=== PATIENT | male | born 1990 | race Caucasian/White ===

== ENCOUNTER 2017-12-13 20:10 | Inpatient (IN) | payer MEDICAID ==
[2017-12-13 20:19] VITALS: BMI 24.7
[2017-12-13] MEDS ORDERED: Sodium Chloride 0.9% 1,000 ML IV STA (20:56)
--- NOTE | 2017-12-13 20:57 | ED PDOC ---
Arrival/HPI <Guilherme,Austin - Last Filed: 12/14/17 01:12> - General Historian: Patient - History of Present Illness Time/Duration: Other (see hpi) Context: Home <Tesha Hannamargret P - Last Filed: 12/15/17 17:55> - General Chief Complaint: Psychiatric Evaluation Time Seen by Provider: 12/13/17 20:55 - History of Present Illness Narrative History of Present Illness (Text): 12/13/17 20:56 This 27 yo male with a PMH depression, presents to this ED c/o feeling depressed and constant suicidal ideation for over 6 months. Patient denies HI, paranoia, illegal drug use, or alcohol abuse. 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 absent: Fatigue, Weight Change, Fevers, Night Sweats Eyes: Normal ENT: Normal Respiratory: Normal Cardiovascular: Normal Gastrointestinal: Normal Genitourinary Male: Normal Musculoskeletal: Normal Skin: Normal Neurological: Normal Endocrine: Normal Hemo/Lymphatic: Normal Psychiatric: Depression, Suicidal Ideation <HannaTeshamargret P - Last Filed: 12/15/17 17:55> Physical Exam Temperature: Afebrile Blood Pressure: Normal Pulse: Regular Respiratory Rate: Normal Appearance: Positive for: Well-Appearing, Non-Toxic, Comfortable Pain Distress: None Mental Status: Positive for: Alert and Oriented X 3 - Systems Exam Head: Present: Atraumatic, Normocephalic Pupils: Present: PERRL Extroacular Muscles: Present: EOMI Conjunctiva: Present: Normal Mouth: Present: Moist Mucous Membranes Neck: Present: Normal Range of Motion Respiratory/Chest: Present: Clear to Auscultation, Good Air Exchange. No: Respiratory Distress, Accessory Muscle Use Cardiovascular: Present: Regular Rate and Rhythm, Normal S1, S2. No: Murmurs Abdomen: No: Tenderness, Distention, Peritoneal Signs Back: Present: Normal Inspection Upper Extremity: Present: Normal Inspection. No: Cyanosis, Edema Lower Extremity: Present: Normal Inspection. No: Edema Neurological: Present: GCS=15, CN II-XII Intact, Speech Normal Skin: Present: Warm, Dry, Normal Color. No: Rashes Psychiatric: Present: Alert, Oriented x 3, Depressed Mood, Suicidal Ideation <Helene Hanna - Last Filed: 12/15/17 17:55> Vital Signs Temp Pulse Resp BP Pulse Ox 12/14/17 03:05 98.3 F 78 17 114/57 L 98 12/13/17 20:18 98.7 F 86 18 134/96 H 100 Medical Decision Making <Austin Vangeas - Last Filed: 12/14/17 01:12> Re-evaluation Time: 01:03 Reassessment Condition: Re-examined, Improving,but remains with symptoms - Lab Interpretations I have reviewed the lab results: Yes Interpretation: No clinic. lab abnormalty - EKG Interpretation Interpreted by ED Physician: Yes (NSR @ [address] changes) Type: 12 lead EKG Comparison: No previous EKG avail. <Helene Hanna - Last Filed: 12/15/17 17:55> ED Course and Treatment: 12/14/17 00:20 PES screener stated she had consulted with Dr. Houser. She recommended admission. Patient agreed with plan. (Helene Hanna) - Lab Interpretations Lab Results: 12/13/17 21:20 12/13/17 21:20 Lab Results 12/13/17 21:20: Urine Opiates Screen Negative, Urine Methadone Screen Negative, Ur Barbiturates Screen Negative, Ur Phencyclidine Scrn Negative, Ur Amphetamines Screen Negative, U Benzodiazepines Scrn Negative, U Oth Cocaine Metabols Negative, U Cannabinoids Screen Positive H 12/13/17 21:20: Alcohol, Quantitative < 10 12/13/17 21:20: Salicylates < 1 L, Acetaminophen < 10.0 L 12/13/17 21:20: Urine Color Yellow, Urine Appearance Clear, Urine pH 6.0, Ur Specific [place] >= 1.030, Urine Protein Trace H, Urine Glucose (UA) Negative, Urine Ketones Trace H, Urine Blood Negative, Urine Nitrate Negative, Urine Bilirubin Negative, Urine Urobilinogen 1.0 H, Ur Leukocyte Esterase Negative, Urine RBC 1 - 3, Urine WBC 2 - 5, Ur Epithelial Cells None, Urine Bacteria Mod 12/13/17 21:20: Sodium 140, Potassium 4.0, Chloride 102, Carbon Dioxide 28, Anion Gap 15, BUN 15, Creatinine 0.9, Est GFR ( Amer) > 60, Est GFR (Non- Af Amer) > 60, Random Glucose 125 H, Calcium 9.2, Magnesium 1.9, Total Bilirubin 0.5, AST 30, ALT 27, Alkaline Phosphatase 46, Total Protein 7.5, Albumin 4.4, Globulin 3.1, Albumin/Globulin Ratio 1.4 12/13/17 21:20: WBC 6.7, RBC 4.90, Hgb 15.2, Hct 42.5, MCV 86.7, MCH 31.0, MCHC 35.8, RDW 12.2, Plt Count 195, MPV 11.3 H, Gran % 77.3 H, Lymph % (Auto) 15.6 L , [place] % (Auto) 7.0 H, Eos % (Auto) 0.0 L, Baso % (Auto) 0.1, Gran # 5.18, Lymph # (Auto) 1.1 L, [place] # (Auto) 0.5, Eos # (Auto) 0.0, Baso # (Auto) 0.01 - RAD Interpretation Radiology Orders: 12/13/17 21:16 CHEST PORTABLE [RAD] Stat - Medication Orders Current Medication Orders: Acetaminophen (Tylenol 325mg Tab) 650 mg PO Q4 PRN PRN Reason: Pain, moderate (4-7) Last Admin: 12/14/17 04:23 Dose: 650 mg MAR Pain/Vitals Document 12/14/17 04:23 KM (Rec: 12/14/17 04:24 KM [id number]) Presence of Pain Presence of Pain Yes Pain Scale Used Pain Scale Used Numeric Location Upper or Lower Upper Pain Location Body Site Back Description Chronic Intensity 4 Scale Used Numeric Re-Assess: GENE Pain/Vitals Document 12/14/17 05:23 KM (Rec: 12/14/17 05:37 KM [id number]) Pain Reassessment Is This A Pain ReAssessment? Yes Sleep Is patient sleeping during reassessment? Yes Location Upper or Lower Upper Pain Location Body Site Back Description Chronic Al Hydrox/Mg Hydrox/Simethicone (Maalox Plus 30 Ml) 30 ml PO DAILY PRN PRN Reason: Upset Stomach Bupropion HCl (Wellbutrin) 75 mg PO BID ELY Last Admin: 12/15/17 17:08 Dose: 75 mg Haloperidol (Haldol) 3 mg PO Q6 PRN; Protocol PRN Reason: Agitation Haloperidol Lactate (Haldol) 3 mg IM Q6 PRN; Protocol PRN Reason: Agitation Lorazepam (Ativan) 1 mg IM Q6 PRN; Protocol PRN Reason: Agitation Lorazepam (Ativan) 1 mg PO Q6 PRN; Protocol PRN Reason: Agitation Magnesium Hydroxide (Milk Of Magnesia) 30 ml PO DAILY PRN PRN Reason: Constipation Naproxen (Anaprox Ds) 550 mg PO BID PRN PRN Reason: Pain, Mild (1-3) Nicotine (Nicoderm Cq) 1 patch TD DAILY ELY Last Admin: 12/15/17 08:24 Dose: [address] [facility] Transdermal Patch Site Document 12/15/17 08:24 RFE (Rec: 12/15/17 08:24 RFE [id number]) Transdermal Patch Site Transdermal Patch Site Right Shoulder Zaleplon (Sonata) 5 mg PO HS PRN PRN Reason: Insomnia Last Admin: 12/14/17 22:05 Dose: 5 mg Discontinued Medications Sodium Chloride (Sodium Chloride 0.9%) 1,000 mls @ 999 mls/hr IV .Q1H1M STA Stop: 12/13/17 21:56 Last Admin: 12/13/17 22:03 Dose: 999 mls/hr eMAR Start Stop Document 12/13/17 22:03 SS (Rec: 12/13/17 22:04 SS [id number]) Intravenous Solution Start Date 12/13/17 Start Time 21:40 End Date 12/13/17 - PA / TALLOW REFINER / Resident Statement / has reviewed & agrees with the documentation as recorded. / has examined the patient and agrees with the treatment plan. <Austin Vanegas - Last Filed: 12/14/17 01:12> Disposition/Present on Arrival <Austin Vanegas - Last Filed: 12/14/17 01:12> - Present on Arrival Any Indicators Present on Arrival: No History of DVT/PE: No History of Uncontrolled Diabetes: No Urinary Catheter: No History of Decub. Ulcer: No History Surgical Site Infection Following: None - Disposition Have Diagnosis and Disposition been Completed?: Yes Disposition Time: 01:08 Patient Plan: Admission <Helene Hanna - Last Filed: 12/15/17 17:55> - Disposition Diagnosis: Major depression Disposition: HOSPITALIZED Patient Problems: Current Active Problems Problem Status Onset Cannabis abuse Acute Major depression Acute Condition: STABLE
[2017-12-13 21:58] LABS: URINE BILIRUBIN NEGATIVE (NEGATIVE); URINE BLOOD NEGATIVE (NEGATIVE); URINE GLUCOSE (UA) NEGATIVE (NEGATIVE); URINE LEUKOCYTE ESTERASE NEGATIVE Leu/uL (NEGATIVE); URINE PROTEIN TRACE mg/dL (<30 mg/dL)
[2017-12-13 21:59] LABS: URINE APPEARANCE CLEAR (CLEAR); URINE COLOR YELLOW (YELLOW)
[2017-12-13 22:00] LABS: BASO # 0.01 K/mm3 (0.0-2.0); BASO % 0.1 % (0.0-3.0); GRAN # 5.18 (1.4-6.5); GRAN % 77.3 % (50.0-68.0); HEMOGLOBIN 15.2 g/dL (14.0-18.0); LYMPH # 1.1 (1.2-3.4); LYMPH % 15.6 % (22.0-35.0); MEAN CELL VOLUME 86.7 fl (80.0-105.0); MEAN CORPUSCULAR HGB CONC 35.8 g/dl (31.0-37.0); MEAN PLATELET VOLUME 11.3 fl (7.0-11.0); MONO # 0.5 (0.1-0.6); RBC 4.9 10^6/uL (3.5-6.1); RED CELL DISTRIBUTION WIDTH 12.2 % (11.5-14.5); WHITE BLOOD COUNT 6.7 10^3/ul (4.5-11.0)
[2017-12-13 22:11] LABS: ALB/GLOB RATIO 1.4 (1.1-1.8); ALBUMIN 4.4 g/dL (3.0-4.8); ALT/SGPT 27 U/L (7-56); AST/SGOT 30 U/L (17-59); BLOOD UREA NITROGEN 15 mg/dL (7-21); CALCIUM 9.2 mg/dL (8.4-10.5); GFR AFRICAN-AMERICAN > 60; GFR NON-AFRICAN AMERICAN > 60
[2017-12-13 22:12] LABS: ACETAMINOPHEN < 10.0 ug/ml (10.0-20.0); SALICYLATE < 1 mg/dL (2.0-20.0)
[2017-12-13 22:26] LABS: BARBITURATES, UR NEGATIVE (NEGATIVE); BENZODIAZEPINES, UR NEGATIVE (NEGATIVE); OPIATES, UR NEGATIVE (NEGATIVE); PHENCYCLIDINE, UR NEGATIVE (NEGATIVE)
[2017-12-13 22:27] LABS: URINE BACTERIA MOD (NEG)
[2017-12-14 04:00] VITALS: O2SAT 100
[2017-12-14] MEDS ORDERED: Magnesium Hydroxide Susp 30 ml UD PO PRN (04:18)
[2017-12-14] MEDS ORDERED: Alum-Mag Hydrox-Simethicone Susp (30 mL) PO PRN (04:18)
--- NOTE | 2017-12-14 05:04 | PCM.BM ---
<Justyn Villa - Last Filed: 12/14/17 05:02> Treatment Plan Problems - Problems identified on initial assessmt Suicidal Ideation Date Initiated: 12/14/17 Time Initiated: 05:02 Assessment reference: NA Status: Active Hopelessness/Helplessness Date Initiated: 12/14/17 Time Initiated: 05:02 Assessment reference: NA Status: Active Feelings of Worthlessness Date Initiated: 12/14/17 Time Initiated: 05:02 Assessment reference: NA Status: Active Ineffective Coping Date Initiated: 12/14/17 Time Initiated: 05:03 Assessment reference: NA Status: Active Altered Sleep Patterns Date Initiated: 12/14/17 Time Initiated: 05:03 Assessment reference: NA Status: Active Treatment assets and liabiliti Patient Assests: adapts well, cooperative, educated, self-reliant, ADL independent, physically healthy, negotiates basic needs, cognitively intact Patient Liabilities: live alone, financial problems, poor support system, substance abuse - Milieu Protocol Maintain good personal hygiene: daily Encourage regular showers, daily Remind patient to perform daily oral care, daily Assist patient to perform ADL's Conduct patient checks and document Observation sheet: Q15 minutes Maintain personal safety: every shift Educate patient to report safety concerns to staff, every shift Monitor environment for contraband/sharps Medication safety: Monitor for expected outcome, potential side effects: every shift, Assess barriers to learning: every shift, Assess readiness for medication education: every shift Discharge/Continuing Care - Education Needs Education Needs: Patient Medication, Patient Diagnosis/Disease Process, Patient Coping Skills, Patient Community resources, Patient Activities of Daily Living, Patient Pain, Patient Health Practices/Safety, Patient Aftercare Safety Plan - Discharge Discharge Criteria: Tolerates medication w/o severe side effects, Free of Suicidal thoughts, Normal sleep pattern, Ability to care for self, Reduction of target symptoms <Cristin Varela - Last Filed: 12/14/17 15:38> - Diagnosis (1) Cannabis abuse Status: Acute Interventions: 12/14/17 15:39 Maintaining sobriety Relapse prevention Possible rehabilitation Motivational interviewing 12-step programs: AA meetings (2) Major depression Status: Acute Interventions: 12/14/17 15:39 Psychoeducation Psychopharmacology/adjustment of medications as needed/ monitoring possible side effects Evaluate pt on daily basis Compliance with medications and follow up appointments Suicide and homicide risk assessment and prevention Relapse prevention Reduction of symptoms Improve functional status Family involvement As outpatient: cognitive behavioral therapy <Jane Hobbs - Last Filed: 12/16/17 14:38>
[2017-12-14 07:41] LABS: GLUCOSE,FASTING 94 mg/dL (65-110); HDL CHOLESTEROL 39 mg/dL (29-60)
[2017-12-14 07:52] LABS: LDL CHOLESTEROL 83 mg/dL (0-129)
--- NOTE | 2017-12-14 08:22 | RAD ---
HISTORY: PES eval COMPARISON: No prior. FINDINGS: LUNGS: No active pulmonary disease. PLEURA: No significant pleural effusion identified, no pneumothorax apparent. CARDIOVASCULAR: Normal. OSSEOUS STRUCTURES: No significant abnormalities. VISUALIZED UPPER ABDOMEN: Normal. OTHER FINDINGS: None. IMPRESSION: No active disease.
--- NOTE | 2017-12-14 10:02 | CARD ---
APPROVED REPORT EKG Measurement Heart [id number] <Conclusion> Normal sinus rhythm with sinus arrhythmia RVCD Normal ECG
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
[2017-12-15 07:02] VITALS: RESP 20
--- NOTE | 2017-12-15 08:28 | PCM.PYCHPN ---
Psychiatric Progress Note - Psychiatric Progress Note Patient seen today, length of contact: 25 min Patient Chief Complaint: "better" Problems Identified/Issues Discussed: I reviewed assessment and recent notes. I met with patient at bedside. He is groomed, alert and well-oriented to month, year, location and circumstances. He cooperates with my questioning and generally denies any new concerns except for the security of his job. Patient worries that his employer will not be happy about his absence from work. Patient reports that he is feeling less depressed since admission and that he is hopeful. He denies any issues with his medications and sleep was fair last night with sonata. His affect is constricted but appropriately reactive. Patient smiles at times during our interview. Responses are relevant, consistent and logical. There is no evidence of perceptual disturbance. Patient has been a little anxious on the unit but in good behavioral control. Appetites is good and he attended group. Insight and judgement are improving and thus far he is doing well. Diagnostic Results: MDD Rule out Adjustment Disorder Cannabis abuse Mental Status Examination - Cognitive Function Orientation: Person, Place - Mood Mood: Depressed - Affect Affect: Flat - Formal Thought Process Formal Thought Process: No Impairment - Homicidal Ideation Homicidal Ideation: No Goal/Treatment Plan - Goal/Treatment Plan Progress Toward Problem(s) and Goals/Treatment Plan: * c/w current tx and plan * No new labs thus today * Vitals reviewed and noted below: Selected Entries 12/14/17 12/14/17 12/14/17 06:50 15:00 22:21 Temperature 98.3 F Pulse Rate 61 70 Respiratory 16 Rate Blood Pressure 121/75 107/76 127/76
--- NOTE | 2017-12-15 13:34 | CP.PCM.CON ---
<Maylin Ozuna - Last Filed: 12/15/17 15:24> History of Present Illness - History of Present Illness History of Present Illness: Maylin Ozuna D.O. 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 Medrano is a 27 year old male with PMH of depression, who arrived to [facility] ED for vomiting. While in the ED, the patient was found to have suicidal ideation and was admitted to the hospital under the care of psychiatry. Patient says that he felt nauseous after he drank about a 1/2 cup of beer, and subsequently had 1 episode of nonbloody vomitus. Patient admits to sore throat, abdominal discomfort. ROS otherwise unremarkable for sinus congestion, ear pain , sick contacts, fever, chills, diarrhea and/or prior episodes. PMH: - depression Surgeries: - tonsillectomy - self reported - appendectomy - self reported Social history: - ETOH: beer on occaision (about 2 times per month) - tobacco: 1.5 packs per day x6 years - recreational drugs: marijuana - occupation: [employer] Family history: - unknown Allergies: patient denies allergies to medication Home meds: patient reports he was taking Review of Systems - Review of Systems All systems: reviewed and no additional remarkable complaints except (per HPI) - Constitutional Constitutional: As Per HPI. absent: Fever - EENT Ears: absent: Ear Pain Nose/Mouth/Throat: As Per HPI. absent: Nasal Congestion, Nasal Discharge, Sinus Pain - Cardiovascular Cardiovascular: As Per HPI - Respiratory Respiratory: As Per HPI, Cough - Gastrointestinal Gastrointestinal: As Per HPI - Psychiatric Psychiatric: Suicidal Ideation (Patient admits to suicidal ideation. Patient says he planned to stab himself with a knife, and a year prior with overdosing on pills.). absent: Homicidal Ideation Past Patient History - Infectious Disease Hx of Infectious Diseases: None - Past Social History Smoking Status: Heavy Smoker > 10 Cigarettes Daily (patient admits to smoking 1.5 packs per day for the past 6 years) Alcohol: Occasional (Admits to consuming beer, approximately 2 times per month.) - CARDIAC Hx Cardiac Disorders: No Hx Hypertension: No - PULMONARY Hx Respiratory Disorders: No Hx Tuberculosis: No - NEUROLOGICAL Hx Neurological Disorder: No HX Cerebrovascular Accident: No Hx Seizures: No - HEENT Hx HEENT Problems: No - RENAL Hx Chronic Kidney Disease: No - ENDOCRINE/METABOLIC Hx Endocrine Disorders: No - HEMATOLOGICAL/ONCOLOGICAL Hx Blood Disorders: No Hx Cancer: No Hx Human Immunodeficiency Virus (HIV): No - INTEGUMENTARY Hx Dermatological Problems: No - MUSCULOSKELETAL/RHEUMATOLOGICAL Hx Back Pain: Yes - GASTROINTESTINAL Hx Gastrointestinal Disorders: No - GENITOURINARY/GYNECOLOGICAL Hx Genitourinary Disorders: No Hx Sexually Transmitted Disorders: No - PSYCHIATRIC Hx Depression: Yes Hx Substance Use: Yes (MJ) Meds Allergies/Adverse Reactions: Allergies Allergy/AdvReac Type Severity Reaction Status Date / Time No Known Allergies Allergy Verified 12/14/17 04:22 - Medications Medications: Current Medications Acetaminophen (Tylenol 325mg Tab) 650 mg PO Q4 PRN PRN Reason: Pain, moderate (4-7) Last Admin: 12/14/17 04:23 Dose: 650 mg Al Hydrox/Mg Hydrox/Simethicone (Maalox Plus 30 Ml) 30 ml PO DAILY PRN PRN Reason: Upset Stomach Bupropion HCl (Wellbutrin) 75 mg PO BID ELY Last Admin: 12/15/17 08:24 Dose: 75 mg Haloperidol (Haldol) 3 mg PO Q6 PRN; Protocol PRN Reason: Agitation Haloperidol Lactate (Haldol) 3 mg IM Q6 PRN; Protocol PRN Reason: Agitation Lorazepam (Ativan) 1 mg IM Q6 PRN; Protocol PRN Reason: Agitation Lorazepam (Ativan) 1 mg PO Q6 PRN; Protocol PRN Reason: Agitation Magnesium Hydroxide (Milk Of Magnesia) 30 ml PO DAILY PRN PRN Reason: Constipation Naproxen (Anaprox Ds) 550 mg PO BID PRN PRN Reason: Pain, Mild (1-3) Nicotine (Nicoderm Cq) 1 patch TD DAILY ELY Last Admin: 12/15/17 08:24 Dose: 1 patch Zaleplon (Sonata) 5 mg PO HS PRN PRN Reason: Insomnia Last Admin: 12/14/17 22:05 Dose: 5 mg Physical Exam - Constitutional Appears: Well, Other - Head Exam Head Exam: ATRAUMATIC, NORMAL INSPECTION, NORMOCEPHALIC - Eye Exam Eye Exam: Normal appearance. absent: Conjunctival injection, Periorbital swelling, Scleral icterus - ENT Exam ENT Exam: absent: Mucous Membranes Moist Additional comments: oral mucous membranes appeared red on inspection with light, lymphadenopathy positive on exam - Neck Exam Neck exam: Positive for: Lymphadenopathy (Left anterior cervical LAD palpable. Right lateral cervical LAD palpable. ) - Respiratory Exam Respiratory Exam: Clear to Auscultation Bilateral, NORMAL BREATHING PATTERN. absent: Accessory Muscle Use, Chest Wall Tenderness, Decreased Breath Sounds, Rales, Rhonchi, Wheezes, Respiratory Distress, Stridor - Cardiovascular Exam Cardiovascular Exam: REGULAR RHYTHM, +S1, +S2. absent: Bradycardia, Tachycardia , Diastolic murmur, Gallop, RRR, Rubs, +S4, Systolic Murmur - GI/Abdominal Exam GI & Abdominal Exam: Normal Bowel Sounds, Soft (negative Sinclair's ). absent: Bruit, Diminished Bowel Sounds, Distended, Firm, Guarding, Hernia, Hyperactive Bowel Sounds, Hypoactive Bowel Sounds, Mass, Organomegaly, Pulsatile Mass, Rebound, Rigid - Neurological Exam Neurological exam: Alert, CN II-XII Intact, Normal Gait, Oriented x3 - Psychiatric Exam Psychiatric exam: Normal Affect, Normal Mood, Suicidal Ideation - Skin Skin Exam: Dry, Intact, Normal Color, Warm Results - Vital Signs Recent Vital Signs: Last Vital Signs Temp 97.5 F L 12/15/17 07:01 Pulse 58 L 12/15/17 07:01 Resp 20 12/15/17 07:01 BP 117/57 L 12/15/17 07:01 Pulse Ox 100 12/14/17 04:21 - Labs Result Diagrams: 12/13/17 21:20 12/13/17 21:20 Labs: Laboratory Results - last 24 hr 12/14/17 07:00 RPR Nonreactive Assessment & Plan - Assessment and Plan (Free Text) Assessment: This is a 27 year old male with PMH of depression who arrived to [facility] ED with a cc of vomiting and was found to have suicidal ideation. Patient is under the care of psychiatry for suicidal ideation and Major Depressive Disorder. Non-bloody vomiting possibly secondary to cannabanoid hyperemesis syndrome; less -likely infectious etiology - positive marijuana on urine drug screen - vitals: afebrial, continue to monitor - negative for elevated leukocytes - monospot test pending - rapid strep test pending - throat culture pending Major Depressive Disorder with history of suicidal ideation - management deferred to psychiatry Substance abuse - positive marijuana on urine drug screen - discussed risks of continued substance abuse, and patient was advised discontinuation. Case was seen and reviewed with Attending Physician, Mendoza Frost D.O. 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 <Perla Medley R - Last Filed: 12/15/17 18:56> Meds - Medications Medications: Current Medications Acetaminophen (Tylenol 325mg Tab) 650 mg PO Q4 PRN PRN Reason: Pain, moderate (4-7) Last Admin: 12/15/17 17:46 Dose: 650 mg Al Hydrox/Mg Hydrox/Simethicone (Maalox Plus 30 Ml) 30 ml PO DAILY PRN PRN Reason: Upset Stomach Bupropion HCl (Wellbutrin) 75 mg PO BID [facility] Last Admin: 12/15/17 17:08 Dose: 75 mg Haloperidol (Haldol) 3 mg PO Q6 PRN; Protocol PRN Reason: Agitation Haloperidol Lactate (Haldol) 3 mg IM Q6 PRN; Protocol PRN Reason: Agitation Lorazepam (Ativan) 1 mg IM Q6 PRN; Protocol PRN Reason: Agitation Lorazepam (Ativan) 1 mg PO Q6 PRN; Protocol PRN Reason: Agitation Magnesium Hydroxide (Milk Of Magnesia) 30 ml PO DAILY PRN PRN Reason: Constipation Naproxen (Anaprox Ds) 550 mg PO BID PRN PRN Reason: Pain, Mild (1-3) Nicotine (Nicoderm Cq) 1 patch TD DAILY [facility] Last Admin: 12/15/17 08:24 Dose: 1 patch Zaleplon (Sonata) 5 mg PO HS PRN PRN Reason: Insomnia Last Admin: 12/14/17 22:05 Dose: 5 mg Results - Vital Signs Recent Vital Signs: Last Vital Signs Temp 97.5 F L 12/15/17 07:01 Pulse 74 12/15/17 15:48 Resp 20 12/15/17 07:01 BP 118/67 12/15/17 15:48 Pulse Ox 100 12/14/17 04:21 - Labs Result Diagrams: 12/13/17 21:20 12/13/17 21:20 Labs: Laboratory Results - last 24 hr 12/15/17 18:03 Grp A Beta Strep Ag Negative Attending/Attestation - Attestation I have personally seen and examined this patient.: Yes I have fully participated in the care of the patient.: Yes I have reviewed all pertinent clinical information: Yes Notes (Text): Patient seen and examined by me at 12:00PM with resident. Case including physical assessment and plan discussed with resident. Agree with above with following additions and changes. Consults of her episode of nausea and vomiting. Patient states he is feeling better today. Patient states he drinks a beer yesterday and subsequently had an episode of vomiting. This has resolved. He states at time of exam that he is having mild abdominal pain. He states he is also having a sore throat and difficulty swallowing. He states this has been going on for approximately one month and has been worsening. Patient has not tried any medications for this at home. He has also not seen a physician for this. He denies any associated fevers or chills. There is no radiation of the pain. He denies any chest pain or shortness of breath. No headaches or dizziness. No dysuria. No diarrhea or constipation. Physical exam: Gen: Patient is awake and alert sitting up in bed in no acute distress HEENT: Normocephalic atraumatic, extraocular muscles intact, pupils equal reactive, oropharynx is pink and moist, no pharyngeal erythema or exudate appreciated, neck is supple. Positive anterior lymphadenopathy Cardiovascular: Normal rhythm, normal S1-S2, positive systolic murmur. No rubs or gallops appreciated Pulmonary: Normal respiratory effort. No rhonchi, rales, or wheezing appreciated Gastrointestinal: Soft, nontender, nondistended, positive bowel sounds all 4 quadrants, no guarding. Musculoskeletal: Moves all extremities, no calf tenderness. Central nervous system: AAO 3, no focal deficits Dermatologic: Skin warm and dry. Assessment and plan: Patient is a 27-year-old male who presented with nausea and vomiting after drinking beer. Patient was admitted to psychiatric unit for suicidal ideation and depression. Nausea and vomiting resolved. May have been secondary to marijuana use. Patient counseled on cessation. Patient with sore throat with lymphadenopathy. Will obtain throat cultures. Monospot testing pending. Throat exam appears within normal limits on exam. No leukocytosis. No fevers. No antibiotics started for now. Management as per primary team for depression. Case was discussed in detail with the patient regarding current diagnosis and treatment plan. Thank you for allowing us participate in the care of your patient we will follow with you.
[2017-12-16] MEDS: Naproxen 550 mg Tab PO PRN (12:06)
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
[2017-12-17] MEDS: Naproxen 550 mg Tab PO PRN (21:34)
--- NOTE | 2017-12-18 08:48 | PCM.PYCHPN ---
Psychiatric Progress Note - Psychiatric Progress Note Patient seen today, length of contact: 30min Patient Chief Complaint: "better" Problems Identified/Issues Discussed: I reviewed recent notes and met with patient at bedside. I am familiar with this patient from a prior interview on December 15. He remains groomed, cooperative, alert and well-oriented to month, year, location and circumstances. He generally denies any new concerns Patient reports continued improvement in depression symptoms since admission. Indicates he doesn't have any more negative thoughts and feels more hopeful than hopeless. Patient denies any issues with his medications and patient slept well slast night. His affect is constricted but showing more range and reactivity. . Patient smiles at times during our interview. Responses are relevant, consistent and logical. There is no evidence of perceptual disturbance. Staff notes indicate that patient has been visible and social with other patients on the unit. Appetite is good and he attends group. Insight and judgment are improving and thus far he is making fair progress. Diagnostic Results: MDD Rule out Adjustment Disorder Cannabis abuse Medication Change: Yes (wellbutrin increased, remeron increased 11/16/17) Medical Record Reviewed: Yes Mental Status Examination - Cognitive Function Orientation: Person, Place Memory: Intact Attention: Poor (some improvement) Concentration: Poor (some improvement) Association: WNL Fund of Knowledge: WNL - Mood Mood: Depressed ("I am not happy") - Affect Affect: Constricted (but more reactive, mood congruent) - Formal Thought Process Formal Thought Process: No Impairment - Suicidal Ideation Suicidal Ideation: No - Homicidal Ideation Homicidal Ideation: No Goal/Treatment Plan - Goal/Treatment Plan Need for Continued Stay: Remain at risks for inpatient hospitalization, Severe depression anxiety, Discharge may exacerbated symptoms, Severe functional impairment Progress Toward Problem(s) and Goals/Treatment Plan: * c/w current tx and plan * No new labs thus today * Vitals reviewed and noted below: Selected Entries 12/18/17 07:17 Temperature 97.7 F Pulse Rate 62 Respiratory 20 Rate Blood Pressure 116/73 Estimated Date of D/C: 12/20/17
[2017-12-18] MEDS: Naproxen 550 mg Tab PO PRN (17:28)
[2017-12-19 06:48] VITALS: TEMP 97.3
--- NOTE | 2017-12-19 08:42 | PCM.PYCHPN ---
Psychiatric Progress Note - Psychiatric Progress Note Patient seen today, length of contact: 30min Patient Chief Complaint: "better" Problems Identified/Issues Discussed: I reviewed recent notes and met with patient at bedside. He remains groomed, cooperative, alert and well-oriented to month, year, location and circumstances. He generally denies any new concerns and reports sustained improvement in depression symptoms since admission. Indicates he doesnt have any more negative thoughts and feels more hopeful than hopeless. Patient denies any issues with his medications and patient slept well again last night. His affect is constricted but showing more range and reactivity. Patient smiles at times during our interview. Responses are relevant, consistent and logical. There is no evidence of perceptual disturbance. Staff notes indicate that patient has been visible and social with other patients on the unit. Affect appears brighter. His appetite is good and he attends group (though without much participation). Insight and judgement are improving and he is making good progress. Diagnostic Results: MDD Rule out Adjustment Disorder Cannabis abuse Medication Change: Yes (wellbutrin increased, remeron increased 11/16/17) Medical Record Reviewed: Yes Mental Status Examination - Cognitive Function Orientation: Person, Place Memory: Intact Attention: Poor (some improvement) Concentration: Poor (some improvement) Association: WNL Fund of Knowledge: WNL - Mood Mood: Depressed ("I am not happy") - Affect Affect: Constricted (but more reactive, mood congruent) - Formal Thought Process Formal Thought Process: No Impairment - Suicidal Ideation Suicidal Ideation: No - Homicidal Ideation Homicidal Ideation: No Goal/Treatment Plan - Goal/Treatment Plan Need for Continued Stay: Remain at risks for inpatient hospitalization, Severe depression anxiety, Discharge may exacerbated symptoms, Severe functional impairment Progress Toward Problem(s) and Goals/Treatment Plan: * c/w current tx and plan * No new labs results this weekend thus far * Vitals reviewed and noted below: Selected Entries 12/19/17 06:46 Temperature 97.3 F L Pulse Rate 62 Respiratory 20 Rate Blood Pressure 112/55 L Estimated Date of D/C: 12/20/17
[2017-12-19 16:43] VITALS: BP 112/62; PULSE 73
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
== END 2017-12-20 14:08 | disposition home or self-care (01) | DRG 430 ==
LOC: ED 20:10 → ERH 12-14 00:15 → PSYC 12-14 03:35
PROVIDERS: ADMIT Psychiatry & Neurology Psychiatry; ATTEND Psychiatry & Neurology Psychiatry
PROC: GZ3ZZZZ Medication Management (ICD-10-PCS; principal; 2017-12-14)
DX: F32.2 Major depressive disorder, single episode, severe without psychotic features (principal); F12.10 Cannabis abuse, uncomplicated; Z91.19 Patient's noncompliance with other medical treatment and regimen; Z91.14 Patient's other noncompliance with medication regimen; R45.851 Suicidal ideations; G89.29 Other chronic pain; J02.9 Acute pharyngitis, unspecified; M54.89 Other dorsalgia; G47.00 Insomnia, unspecified; F17.210 Nicotine dependence, cigarettes, uncomplicated

== ENCOUNTER 2018-01-26 10:01 | Emergency (ER) | payer MEDICAID ==
[2018-01-26 10:01] VITALS: BMI 24.7
--- NOTE | 2018-01-26 10:27 | ED PDOC ---
Arrival/HPI - General Time Seen by Provider: 01/26/18 10:22 Historian: Patient - History of Present Illness Narrative History of Present Illness (Text): 01/26/18 10:26 27 year old with no significant PMH, who presents to the emergency department complaining of intermittent dysuria since a couple months. Patient reports this symptom is associated with stabbing left lower back pain and frequency. He notes coming to the emergency department today due to his glucose level being high at 234 yesterday. No other symptoms. No trauma. He denies any dysuria, urgency or frequency. No dark or bloody urine or stool. Patient denies any fever , chest pain, shortness of breath, chills, abdominal pain, nausea, vomiting, diarrhea, testicular swelling, or other other complaints. PMD: Dr. Kevin 01/26/18 16:23 01/26/18 16:23 Time/Duration: > month Symptom Onset: Gradual Symptom Course: Unchanged, Intermittent Quality: Stabbing Context: Home Past Medical History - Provider Review Nursing Documentation Reviewed: Yes - Infectious Disease Hx of Infectious Diseases: None - Cardiac Hx Cardiac Disorders: No Hx Hypertension: No - Pulmonary Hx Respiratory Disorders: No Hx Tuberculosis: No - Neurological Hx Neurological Disorder: No HX Cerebrovascular Accident: No Hx Seizures: No - HEENT Hx HEENT Disorder: No - Renal Hx Renal Disorder: No - Endocrine/Metabolic Hx Endocrine Disorders: No - Hematological/Oncological Hx Blood Disorders: No Hx Cancer: No - Integumentary Hx Dermatological Disorder: No - Musculoskeletal/Rheumatological Hx Back Pain: Yes - Gastrointestinal Hx Gastrointestinal Disorders: No - Genitourinary/Gynecological Hx Genitourinary Disorders: No Hx Sexually Transmitted Diseases: No - 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) Family/Social History - Physician Review Nursing Documentation Reviewed: Yes Family/Social History: Unknown Family HX Smoking Status: Heavy Smoker > 10 Cigarettes Daily Hx Alcohol Use: Yes 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 absent: Hematuria Musculoskeletal: Back Pain (left lower back pain) Skin: absent: Rash Neurological: absent: Headache Endocrine: absent: Diaphoresis Physical Exam Vital Signs Reviewed: Yes Vital Signs Temp Pulse Resp BP Pulse Ox 01/26/18 14:48 98.2 F 66 18 110/56 L 99 01/26/18 13:14 76 18 128/73 99 01/26/18 10:35 98.5 F 76 18 111/75 99 Temperature: Afebrile Blood Pressure: Normal Pulse: Regular Respiratory Rate: Normal Appearance: Positive for: Well-Appearing, Non-Toxic, Comfortable Pain Distress: None Mental Status: Positive for: Alert and Oriented X 3 - Systems Exam Head: Present: Atraumatic, Normocephalic Pupils: Present: PERRL Extroacular Muscles: Present: EOMI Conjunctiva: Present: Normal Respiratory/Chest: Present: Clear to Auscultation, Good Air Exchange. No: Respiratory Distress, Accessory Muscle Use, Wheezes, Decreased Breath Sounds, Rales, Rhonchi Cardiovascular: Present: Regular Rate and Rhythm, Normal S1, S2. No: Murmurs Abdomen: Present: Normal Bowel Sounds. No: Tenderness, Distention, Peritoneal Signs, Rebound, Guarding Genitourinary Male: Present: Normal External Genitalia, Other (Pattern Keeper: Renea Sally). No: Penile Discharge, Testicle Tenderness, Penile Swelling, Masses, Erythema, Testicle Swelling, Prostate Tenderness Upper Extremity: Present: Normal ROM, NORMAL PULSES, Tenderness (left flank mild tenderness), Neurovascularly Intact, Capillary Refill < 2s. No: Cyanosis, Edema, Deformity Neurological: Present: GCS=15, CN II-XII Intact, Speech Normal Skin: Present: Warm, Dry, Normal Color. No: Rashes Psychiatric: Present: Alert, Oriented x 3, Normal Insight, Normal Concentration Medical Decision Making ED Course and Treatment: 01/26/18 Impression: 27 year old male with mild left flank tenderness complaining of left lower back pain associated with dysuria and frequency. No STD history, has sex always with condoms. No rashes. No new partners, has sex with women only. No trauma. No ripping back pain or history or kidney stones. No cough. No fever. 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 No enuresis / encoparesis, saddle anesthesia or any FND. No difficulty walking. Plan: -- Labs -- Urinalysis -- Reassess and disposition Progress Notes: 01/26/18 14:00 CT abdomen and pelvis: Creator : Coy Mcmahan MD FINDINGS: LOWER THORAX: Unremarkable. LIVER: Unremarkable. No gross lesion or ductal dilatation. GALLBLADDER AND BILE DUCTS: Unremarkable. PANCREAS: Unremarkable. No gross lesion or ductal dilatation. SPLEEN: Unremarkable. ADRENALS: Unremarkable. No mass. KIDNEYS AND URETERS: Unremarkable. No hydronephrosis. No solid mass. VASCULATURE: Unremarkable. No aortic aneurysm. BOWEL: Constipation without fecal impaction or obstruction. APPENDIX: No abnormalities to suggest acute appendicitis. No right lower quadrant inflammatory processes identified. PERITONEUM: Unremarkable. No free fluid. No free air. LYMPH NODES: Unremarkable. No enlarged lymph nodes. BLADDER: Unremarkable. REPRODUCTIVE: Unremarkable. BONES: No acute fracture. OTHER FINDINGS: None. IMPRESSION: No significant or acute findings to account for/ related to the clinical presentation. Additional benign and/or incidental findings described above. Imaging and labs unremarkable US w/ hydrocele, informed pt to follow up w/ PCP. Pain resolved. Clear for d/c home. 01/26/18 16:26 - Lab Interpretations Lab Results: 01/26/18 11:40 01/26/18 11:40 Lab Results 01/26/18 13:15: Lactic Acid 0.8 01/26/18 11:40: WBC 3.5 L D, RBC 4.86, Hgb 14.9, Hct 42.2, MCV 86.8, MCH 30.7, MCHC 35.3, RDW 12.4, Plt Count 189, MPV 11.2 H, Gran % 38.9 L, Lymph % (Auto) 48.6 H, [place] % (Auto) 8.5 H, Eos % (Auto) 3.7, Baso % (Auto) 0.3, Gran # 1.37 L , Lymph # (Auto) 1.7, [place] # (Auto) 0.3, Eos # (Auto) 0.1, Baso # (Auto) 0.01 01/26/18 11:40: Alcohol, Quantitative < 10 01/26/18 11:40: Salicylates < 1 L, Acetaminophen < 10.0 L 01/26/18 11:40: Sodium 140, Potassium 4.3, Chloride 101, Carbon Dioxide 28, Anion Gap 15, BUN 10, Creatinine 0.8, Est GFR ( Amer) > 60, Est GFR (Non- Af Amer) > 60, Random Glucose 88, Calcium 9.1, Magnesium 1.8, Total Bilirubin 0.8, AST 32, ALT 36, Alkaline Phosphatase 48, Total Protein 7.1, Albumin 4.0, Globulin 3.1, Albumin/Globulin Ratio 1.3, Lipase 22 L 01/26/18 11:40: Urine Color Yellow, Urine Appearance Cloudy, Urine pH 6.0, Ur Specific [place] >= 1.030, Urine Protein Negative, Urine Glucose (UA) Negative, Urine Ketones Negative, Urine Blood Negative, Urine Nitrate Negative, Urine Bilirubin Negative, Urine Urobilinogen 0.2, Ur Leukocyte Esterase Negative I have reviewed the lab results: Yes - RAD Interpretation Radiology Orders: 01/26/18 13:25 ABD & PELVIS W/O PO OR IV CONT [CT] Stat TESTES DUPLEX COMPLETE [US] Stat - Scribe Statement The provider has reviewed the documentation as recorded by the Scribe Renea Zavala Provider Scribe Attestation: All medical record entries made by the Scribe were at my direction and personally dictated by me. I have reviewed the chart and agree that the record accurately reflects my personal performance of the history, physical exam, medical decision making, and the department course for this patient. I have also personally directed, reviewed, and agree with the discharge instructions and disposition. Disposition/Present on Arrival - Present on Arrival Any Indicators Present on Arrival: No History of DVT/PE: No History of Uncontrolled Diabetes: No Urinary Catheter: No History Surgical Site Infection Following: None - Disposition Have Diagnosis and Disposition been Completed?: Yes Diagnosis: Back pain, Muscular pain Disposition: HOME/ ROUTINE Disposition Time: 14:00 Condition: GOOD Discharge Instructions (ExitCare): Muscle and Bone Pain (DC) Additional Instructions: STEFANIE JACINTO, thank you for letting us take care of you today. Your provider was Ernesto Bird and you were treated for flank pain / high blood suger. The emergency medical care you received today was directed at your acute symptoms. If you were prescribed any medication, please fill it and take as directed. It may take several days for your symptoms to resolve. Return to the Emergency Department if your symptoms worsen, do not improve, or if you have any other problems. Please contact your doctor or call one of the physicians/clinics you have been referred to that are listed on the Patient Visit Information form that is included in your discharge packet. Bring any paperwork you were given at discharge with you along with any medications you are taking to your follow up visit. Our treatment cannot replace ongoing medical care by a primary care provider outside of the emergency department. Thank you for allowing the [facility] team to be part of your care today. If you had an X-Ray or CT scan: A Radiologist will review the ED reading if any change in treatment is needed we will contact you. If you had a blood, urine, or wound culture: It will take several days for the results, if any change in treatment is needed we will contact you. If you had an STI test: It will take 48 hours for the results. Please call after 1 week if you have not heard back. Referrals: Aevry Willingham MD [Staff Provider] - Follow up with primary Linh Lopez MD [Medical Doctor] - Follow up with primary Forms: [employer] (American)
[2018-01-26 10:42] VITALS: RESP 18; O2SAT 99
[2018-01-26 11:55] LABS: URINE BILIRUBIN NEGATIVE (NEGATIVE); URINE BLOOD NEGATIVE (NEGATIVE); URINE GLUCOSE (UA) NEGATIVE (NEGATIVE); URINE LEUKOCYTE ESTERASE NEGATIVE Leu/uL (NEGATIVE); URINE PROTEIN NEGATIVE mg/dL (<30 mg/dL); URINE UROBILINOGEN 0.2 E.U./dL (<1 E.U./dL)
[2018-01-26 12:00] LABS: URINE APPEARANCE CLOUDY (CLEAR); URINE COLOR YELLOW (YELLOW)
[2018-01-26 12:04] LABS: ACETAMINOPHEN < 10.0 ug/ml (10.0-20.0); SALICYLATE < 1 mg/dL (2.0-20.0)
[2018-01-26 12:09] LABS: BASO # 0.01 K/mm3 (0.0-2.0); BASO % 0.3 % (0.0-3.0); EOS # 0.1 (0.0-0.7); EOS % 3.7 % (1.5-5.0); GRAN # 1.37 (1.4-6.5); GRAN % 38.9 % (50.0-68.0); HEMOGLOBIN 14.9 g/dL (14.0-18.0); LYMPH # 1.7 (1.2-3.4); LYMPH % 48.6 % (22.0-35.0); MEAN CELL VOLUME 86.8 fl (80.0-105.0); MEAN CORPUSCULAR HEMOGLOBIN 30.7 pg (25.0-35.0); MEAN CORPUSCULAR HGB CONC 35.3 g/dl (31.0-37.0); MEAN PLATELET VOLUME 11.2 fl (7.0-11.0); MONO # 0.3 (0.1-0.6); MONO % 8.5 % (1.0-6.0); RBC 4.86 10^6/uL (3.5-6.1); RED CELL DISTRIBUTION WIDTH 12.4 % (11.5-14.5); WHITE BLOOD COUNT 3.5 10^3/ul (4.5-11.0)
[2018-01-26 12:35] LABS: ALB/GLOB RATIO 1.3 (1.1-1.8); ALT/SGPT 36 U/L (7-56); AST/SGOT 32 U/L (17-59); BLOOD UREA NITROGEN 10 mg/dL (7-21); CALCIUM 9.1 mg/dL (8.4-10.5); GFR AFRICAN-AMERICAN > 60; GFR NON-AFRICAN AMERICAN > 60; LIPASE 22 U/L (23-300)
--- NOTE | 2018-01-26 13:59 | CT ---
Date of service: 01/26/2018 PROCEDURE: CT Abdomen and Pelvis without intravenous contrast HISTORY: Left flank pain. COMPARISON: None TECHNIQUE: Unenhanced study. Neither oral nor intravenous contrast administered. . Radiation dose: Total exam DLP = 623.22 mGy-cm. This CT exam was performed using one or more of the following dose reduction techniques: Automated exposure control, adjustment of the mA and/or kV according to patient size, and/or use of iterative reconstruction technique. FINDINGS: LOWER THORAX: Unremarkable. LIVER: Unremarkable. No gross lesion or ductal dilatation. GALLBLADDER AND BILE DUCTS: Unremarkable. PANCREAS: Unremarkable. No gross lesion or ductal dilatation. SPLEEN: Unremarkable. ADRENALS: Unremarkable. No mass. KIDNEYS AND URETERS: Unremarkable. No hydronephrosis. No solid mass. VASCULATURE: Unremarkable. No aortic aneurysm. BOWEL: Constipation without fecal impaction or obstruction. APPENDIX: No abnormalities to suggest acute appendicitis. No right lower quadrant inflammatory processes identified. PERITONEUM: Unremarkable. No free fluid. No free air. LYMPH NODES: Unremarkable. No enlarged lymph nodes. BLADDER: Unremarkable. REPRODUCTIVE: Unremarkable. BONES: No acute fracture. OTHER FINDINGS: None. IMPRESSION: No significant or acute findings to account for/ related to the clinical presentation. Additional benign and/or incidental findings described above.
[2018-01-26 14:49] VITALS: BP 110/56; PULSE 66
--- NOTE | 2018-01-26 14:54 | US ---
Date of service: 01/26/2018 HISTORY: testicular pain TECHNIQUE: Realtime sonography through the scrotum with color and doppler flow. COMPARISON: None Available. FINDINGS: RIGHT TESTICLE: Measures 2.6 x 3.8 x 4.8 cm. Normal echotexture and flow. RIGHT EPIDIDYMIS: Epididymal head measures 1.1 x 1.2 cm. Grossly unremarkable appearance with normal flow. LEFT TESTICLE: Measures 2.6 x 3.4 x 4.6 cm. Normal echotexture and flow. LEFT EPIDIDYMIS: Epididymal head measures 1.1 x 1.2 x 1.8 cm. Grossly unremarkable appearance with normal flow. HYDROCELE: Small, bilateral. VARICOCELE: None. OTHER FINDINGS: None. IMPRESSION: No significant or acute findings to account for/ related to the clinical presentation.
[2018-01-26 15:11] VITALS: TEMP 98.2
== END 2018-01-26 15:11 | disposition home or self-care (01) ==
LOC: ED 10:01
DX: M54.9 Dorsalgia, unspecified (principal); M79.1 Myalgia